=== PATIENT | male | born 1985 | race Caucasian/White ===

== ENCOUNTER 2017-11-18 21:12 | Emergency (ER) | payer SELFPAY ==
[~2017-11-18] VITALS: Ht 172.7 cm; Wt 83.9 kg
[2017-11-18 21:47] LABS: BASOPHIL % 0.5 % (0-2); PLATELET COUNT 254 x10^3mcL (130-400); RED CELL DISTRIBUTION WIDTH 11.8 % (11.5-14.5)
[2017-11-18 21:49] LABS: UA SPECIFIC GRAVITY 1.025 (1.005-1.035); microscopic required? YES; urine erythrocyte 2+ (NEGATIVE)
[2017-11-18 22:01] LABS: CALCIUM 9.3 mg/dL (8.5-10.1); CARBON DIOXIDE 23.4 mmol/L (21-32); CHLORIDE SERUM 101 mmol/L (98-107); GFR1 > 60 mL/min; GLUCOSE SERUM 109 mg/dL (74-106); POTASSIUM SERUM 3.1 mmol/L (3.5-5.1); SODIUM SERUM 134 mmol/L (136-145)
[2017-11-18 22:08] LABS: ALBUMIN 4.2 g/dL (3.4-5.0); ALKALINE PHOSPHATASE 112 U/L (46-116); ALT/SGPT 35 U/L (16-63); AST/SGOT 23 U/L (15-37); BILIRUBIN TOTAL 0.6 mg/dL (0.20-1.00); LIPASE 164 IU/L (73-393)
[2017-11-18 22:13] LABS: TOTAL PROTEIN, SERUM 8.5 g/dL (6.4-8.2)
[2017-11-18 22:42] VITALS: BP 143/84
== END 2017-11-18 22:42 | disposition home or self-care (01) ==
LOC: ED 21:12
PROVIDERS: Emergency Medicine
DX: R31.9 Hematuria, unspecified (principal); E87.6 Hypokalemia; R10.30 Lower abdominal pain, unspecified; R19.7 Diarrhea, unspecified
CPT/HCPCS: J1885; J2405; J7030